=== PATIENT | female | born 1995 | race Hispanic/Latino ===

== ENCOUNTER 2021-06-03 15:55 | Outpatient (CLI) | payer BC, SELFPAY ==
--- NOTE | ~2021-06-03 | US_ITS ---
EXAMINATION: US OB /maternal detail DATE: 06/03/2021 17:15 INDICATION: survey TECHNIQUE: Multiple obstetric sonographic images performed. FINDINGS: No prior studies for comparison. There is a single living fetus in breech presentation. The placenta is anterior without placenta pre via. Amniotic fluid volume is normal. JOLEEN measures 13.6 cm. cardiac activity and movement is noted with a heart rate of 126 beats per minute. The following anatomy was identified as normal: 4 chamber heart 3 vessel cord cord insertion kidneys urinary bladder stomach spine diaphragm ventricles cisterna magna cerebellum The following biometric data were obtained: BPD: 62mm corresponds to gestational age 25 weeks 1 days. Head circumference: 234 mm corresponds to gestational age 25 weeks 3 days. Abdominal circumference: 210 mm corresponds to gestational age 25 weeks 4 days. Femur length: 46 mm corresponds to gestational age 25 weeks 2 days. Head circumference to abdominal circumference ratio: 1.12 (normal range for expected gestational age is 1.04-1.22). Estimated weight: 808 grams +/- 121 grams using Hadlock method. IMPRESSION: 1: Single living intrauterine with an estimated gestational age of 25weeks 3days by current ultrasound measurements, with an EDC of 09/13/2021 in breech presentation. 2. Normal survey. Reviewed, dictated and finalized at location A. R SUPPLY ENGINEER IMPRESSION: 1: Single living intrauterine with an estimated gestational age of 25 weeks 3days by current ultrasound measurements, with an EDC of 09/13/2021 in br eech presentation. 2. Normal survey.
== END 2021-06-03 15:56 | disposition home or self-care (01) ==
PROVIDERS: Visit Provider Obstetrics & Gynecology
DX: O41.8X93 Other specified disorders of amniotic fluid and membranes, unspecified trimester, fetus 3 (principal); O46.8X3 Other antepartum hemorrhage, third trimester; Z36.3 Encounter for antenatal screening for malformations; Z3A.25 25 weeks gestation of pregnancy
CPT/HCPCS: 76805

== ENCOUNTER 2021-06-24 15:33 | Outpatient (CLI) | payer BC, SELFPAY ==
[2021-06-24 17:39] LABS: Hematocrit 36.1 % (37.0-47.0); Hemoglobin 11.9 g/dL (12.0-15.0); Mean Platelet Volume 11.4 fl (7.4-10.4); Platelet Count Result 297 k/mm3 (150-375); Red Cell Distribution Width 13.7 % (11.5-14.5); White Blood Count 12.7 K/mm3 (4.5-10.0)
[2021-06-24 17:50] LABS: Glucose 1 Hour PP 50gm Dose 130 mg/dL
[2021-06-24 18:42] LABS: HIV 1/2 Ab P24 Ag Result Negative (Negative)
[2021-06-25 06:32] LABS: Rapid Plasma Reagin Non-Reactive (NonReactive)
== END 2021-06-24 15:34 | disposition home or self-care (01) ==
LOC: ANHLAB 15:37
PROVIDERS: Visit Provider Obstetrics & Gynecology
DX: Z34.90 Encounter for supervision of normal pregnancy, unspecified, unspecified trimester (principal)
CPT/HCPCS: 36415; 82947; 85027; 86592; 86703; G0432

== ENCOUNTER 2021-07-09 14:57 | Outpatient (CLI) | payer BC, SELFPAY | END 2021-07-09 14:58 | disposition home or self-care (01) | LOC: ANHBWCLAB 14:59 | PROVIDERS: Visit Provider Obstetrics & Gynecology | DX: Z34.92 Encounter for supervision of normal pregnancy, unspecified, second trimester (principal); Z3A.29 29 weeks gestation of pregnancy | CPT/HCPCS: 36415; 86787 ==

== ENCOUNTER 2021-07-24 10:29 | Outpatient (CLI) | payer BC, SELFPAY ==
[2021-07-24 10:50] LABS: Hematocrit 33.6 % (37.0-47.0); Hemoglobin 10.9 g/dL (12.0-15.0); Mean Corpuscular HGB Conc 32.4 g/dl (32-36); Mean Corpuscular Hemoglobin 28.2 pg (26-34); Platelet Count Result 268 k/mm3 (150-375); Red Blood Count 3.86 M/mm3 (4.2-5.4); Red Cell Distribution Width 13.5 % (11.5-14.5); White Blood Count 11.3 K/mm3 (4.5-10.0)
[2021-07-24 11:01] LABS: Alanine Aminotransferase 32 U/L (4-35); Albumin Level 3.9 g/dL (3.5-5.1); Alkaline Phosphatase 125 U/L (38-126); Anion Gap 10 mmol/L (8-16); Aspartate Amino Transferase 25 U/L (14-36); Bilirubin,Total 0.3 mg/dL (0.2-1.3); Blood Urea Nitrogen 6 mg/dL (7-17); Calcium 9.6 mg/dL (8.4-10.2); Carbon Dioxide 22 mmol/L (22-30); Chloride 105 mmol/L (98-107); Estimated Glomerular Filt Rate > 60; Glucose 101 mg/dL (65-110); Potassium 3.8 mmol/L (3.4-5.0); Sodium 137 mmol/L (137-145)
[2021-07-24 12:12] LABS: Collection Time Urine 24 HOURS
[2021-07-24 12:15] LABS: Total Volume 24 Hour Urine 2400 ml
[2021-07-24 12:20] LABS: Creatinine Urine 78.5 mg/dL; Total Protein Urine 24 Hr 456 mg/24hr (28-141); Total Protein Urine Random 19 mg/dL
[2021-07-24 13:06] LABS: Creatinine Clearance Urine 298.3 ml/min (75-125); Patient Weight 198 Lbs
== END 2021-07-24 10:30 | disposition home or self-care (01) ==
PROVIDERS: Visit Provider Obstetrics & Gynecology
DX: O13.9 Gestational [pregnancy-induced] hypertension without significant proteinuria, unspecified trimester (principal); R80.9 Proteinuria, unspecified; Z3A.00 Weeks of gestation of pregnancy not specified
CPT/HCPCS: 36415; 80053; 81050; 82575; 84156; 84550; 85027

== ENCOUNTER 2021-08-19 15:15 | Outpatient (CLI) | payer BC, SELFPAY ==
--- NOTE | ~2021-08-19 | US_ITS ---
EXAMINATION: US OB follow up DATE: 08/19/2021 16:06 INDICATION: Assess growth an weight as well as amniotic fluid index during third trimeste r . TECHNIQUE: Real-time ultrasound of the pelvis was performed. The interpreting radiologist was not pre sent for the study. COMPARISON: 06/03/2021 FINDINGS: There is a single living fetus in vertex presentation. The placenta is anterior. heart rate is 139 beats per minute (bpm). The amniotic fluid index is 11.5 cm, which is normal (5th%-95%: 7.9-24. 9 cm at 35 weeks estimated gestational age). The following biometric data were obtained: BPD: 9.2 cm -> 37 weeks 3 days Head circumference: 32.9 cm -> 37 weeks 3 days Abdominal circumference: 31.4 cm -> 35 weeks 2 days Femur length: 6.8 cm -> 35 weeks 1 days These measurements are concordant. Head circumference to abdominal circumference ratio: 1.05 (normal range 0.92-1.07). Estimated weight: 2747 g (+/-) 412 g or 6 lbs. 1 oz. (+/-) 15 oz. IMPRESSION: 1. Single living fetus in vertex presentation with heart rate of 139 bpm. 2. Normal amniotic fluid index of 11.5 cm. 3. Estimated weight is 60th percentile by Hadlock criteria when 09/21/2021 is used as the estima sallie date of delivery (AZEB). Please correlate with clinical information or earlier ultrasounds for mos t accurate AZEB. Reviewed, dictated and finalized at location A. KER AND SORTER OPERATOR IMPRESSION: 1. Single living fetus in vertex presentation with heart rate of 139 bpm. 2. Normal amniotic fluid index of 11.5 cm. 3. Estimated weight is 60th percentile by Hadlock criteria when 09/21/2021 is used as the estimated date of delivery (AZEB). Please correlate with clinica l information or earlier ultrasounds for most accurate AZEB.
== END 2021-08-19 15:16 | disposition home or self-care (01) ==
LOC: ANHIMG 15:16
PROVIDERS: Visit Provider Obstetrics & Gynecology
DX: O36.60X0 Maternal care for excessive fetal growth, unspecified trimester, not applicable or unspecified (principal); Z3A.00 Weeks of gestation of pregnancy not specified
CPT/HCPCS: 76816

== ENCOUNTER 2021-08-21 12:24 | Outpatient (CLI) | payer BC, SELFPAY ==
[2021-08-21 13:12] LABS: Hematocrit 33.6 % (37.0-47.0); Mean Corpuscular HGB Conc 32.7 g/dl (32-36); Mean Corpuscular Hemoglobin 28.1 pg (26-34); Mean Corpuscular Volume 85.9 fl (80-100); Mean Platelet Volume 11.1 fl (7.4-10.4); Platelet Count Result 264 k/mm3 (150-375); Red Blood Count 3.91 M/mm3 (4.2-5.4); White Blood Count 11.7 K/mm3 (4.5-10.0)
[2021-08-21 13:24] LABS: Alanine Aminotransferase 30 U/L (4-35); Albumin Level 3.8 g/dL (3.5-5.1); Alkaline Phosphatase 160 U/L (38-126); Anion Gap 6 mmol/L (8-16); Aspartate Amino Transferase 29 U/L (14-36); Bilirubin,Total 0.4 mg/dL (0.2-1.3); Blood Urea Nitrogen 6 mg/dL (7-17); Carbon Dioxide 24 mmol/L (22-30); Chloride 105 mmol/L (98-107); Estimated Glomerular Filt Rate > 60; Glucose 88 mg/dL (65-110); Potassium 3.6 mmol/L (3.4-5.0); Sodium 135 mmol/L (137-145); Uric Acid 4.5 mg/dL (2.5-7.5)
[2021-08-21 13:36] LABS: Collection Time Urine 24 HOURS
[2021-08-21 13:44] LABS: Creatinine Urine 102.8 mg/dL; Patient Weight 202 Lbs; Total Protein Urine 24 Hr 225 mg/24hr (28-141); Total Protein Urine Random 15 mg/dL; Total Volume 24 Hour Urine 1500 ml
[2021-08-21 13:51] LABS: Creatinine Clearance Urine 242.1 ml/min (75-125); Serum Creat 0.4
== END 2021-08-21 12:25 | disposition home or self-care (01) ==
LOC: ANHLAB 12:26
PROVIDERS: Visit Provider Obstetrics & Gynecology
DX: O13.9 Gestational [pregnancy-induced] hypertension without significant proteinuria, unspecified trimester (principal); Z3A.00 Weeks of gestation of pregnancy not specified
CPT/HCPCS: 36415; 80053; 81050; 82575; 84156; 84550; 85027

== ENCOUNTER 2021-08-31 06:02 | Inpatient (IN) | payer BC, SELFPAY ==
[2021-08-31] VITALS (131 sets, daily range): BP systolic 110–165; BP diastolic 61–105; PULSE 73–175; RESP 16; TEMP 36.1–36.9; O2SAT 98–100; BMI 37.0
[2021-08-31 06:55] LABS: Basophils Percent Auto 0.4 % (0.2-1.2); Eosinophils Absolute Auto 0.1 K/mm3 (0-0.3); Eosinophils Percent Auto 1.1 % (0-4.4); Hematocrit 33.1 % (37.0-47.0); Hemoglobin 10.7 g/dL (12.0-15.0); Immature Granulocyte Percent A 0.9 % (0-0.5); Lymphocytes Absolute Auto 2.26 K/mm3 (0.9-3.2); Lymphocytes Percent Auto 21.3 % (18.3-44.2); Mean Corpuscular HGB Conc 32.3 g/dl (32-36); Mean Corpuscular Hemoglobin 27.6 pg (26-34); Mean Corpuscular Volume 85.5 fl (80-100); Monocytes Absolute Auto 0.9 K/mm3 (0.1-0.6); Monocytes Percent Auto 8.1 % (2.6-8.5); Neutrophils Absolute Auto 7.2 K/mm3 (1.3-6.7); Neutrophils Percent Auto 68.2 % (45.5-73.1); Platelet Count Result 258 k/mm3 (150-375); Red Blood Count 3.87 M/mm3 (4.2-5.4); White Blood Count 10.6 K/mm3 (4.5-10.0)
[2021-08-31 07:04] LABS: Alanine Aminotransferase 33 U/L (4-35); Albumin Level 3.7 g/dL (3.5-5.1); Alkaline Phosphatase 187 U/L (38-126); Anion Gap 7 mmol/L (8-16); Aspartate Amino Transferase 28 U/L (14-36); Bilirubin,Total 0.1 mg/dL (0.2-1.3); Blood Urea Nitrogen 7 mg/dL (7-17); Calcium 8.7 mg/dL (8.4-10.2); Carbon Dioxide 20 mmol/L (22-30); Chloride 107 mmol/L (98-107); Estimated Glomerular Filt Rate > 60; Glucose 105 mg/dL (65-110); Potassium 3.4 mmol/L (3.4-5.0); Sodium 134 mmol/L (137-145); Uric Acid 4.7 mg/dL (2.5-7.5)
[2021-08-31] MEDS: AMPICILLIN 2 GM/NS 100 ML 2 GM/100 ML BAG IVPB (07:05)
[2021-08-31] MEDS: LACTATED RINGERS 1,000 ML 125 ML IV CONT ×2 (07:06→11:15)
[2021-08-31] MEDS: OXYTOCIN 30 UNITS/NS 500 ML 30 UNITS/500 ML BAG IV CONT (07:06)
--- NOTE | 2021-08-31 07:09 | LDADM ---
This patient, Elham Schumacher, was admitted to Labor/Delivery/Recovery 104 on 08/31/21 at 06:02. Plans for labor, pain management and were discussed with patient. Patient/family oriented to hospital policies and general routines including ID bracelet, bed and alarms, visiting hours, pain management, procedures, bathroom and other care routines, personal items, smoking policy, room service/diet and guest tray routines, infant security routines, and visiting hours. Patient/Family are encouraged to report perceived risks to care and to ask questions if they do not understand what they are told or what they should do. See OBIX for further documentation.
--- NOTE | 2021-08-31 08:07 | WPDOBADMIT ---
Obstetrics - Admit Note Admission Note: record reviewed. No pertinent additions to the history and/or any subsequent changes in the physical findings that are not consistent with the expected course of the were found. Additions to the history and/or subsequent changes in the physical findings follow. at 37+0 for induction of labor due to mild preeclampsia. No GREEN/visual changes. Cervix 3-4/30/-2/soft/posterior. AROM with small clear fluid. GBS+. PIH labs normal. Continue antibiotics and PCN. Observe BP closely.
[2021-08-31 08:49] LABS: Amphetamine Screen Urine Negative (Negative); Barbiturate Screen Urine Negative (Negative); Benzodiazepines Screen Urine Negative (Negative); Cannabinoid Screen Urine Negative (Negative); Cocaine Screen Urine Negative (Negative); Methadone Screen Urine Negative (Negative); Opiate Screen Urine Negative (Negative); Phencyclidine Screen Urine Negative (Negative)
[2021-08-31] MEDS: AMPICILLIN 1 GM/NS 50 ML 1 GM/50 ML BAG IVPB ×2 (11:15→14:47)
--- NOTE | 2021-08-31 12:49 | WPDANESEPPF ---
Anes - Initial Pre Proc Eval Procedure: labor epidural Date/Time: 08/31/21 12:49 Surgeon: Genny Garzon MD Pre Op Diagnosis: labor pain Pre Op Diagnosis: Induction of Labor Patient Data Age: 26 Gender: F Height: 1.57 m Weight: 92 kg Last Vital Signs Temp 36.4 C 08/31/21 11:45 Pulse 90 08/31/21 12:45 BP 120/75 08/31/21 12:45 Pulse Ox 100 08/31/21 12:44 Allergies Allergy/AdvReac Type Severity Reaction Status Date / Time No Known Allergies Allergy Verified 08/26/21 15:07 Home Medications Medication Instructions Recorded Confirmed Type docosahexaenoic acid 200 mg capsule 200 mg PO DAILY 05/28/21 08/26/21 History Laboratory Tests 08/31/21 08/31/21 08/31/21 06:48 06:48 06:48 WBC 10.6 K/mm3 H K/mm3 (4.5-10.0) RBC 3.87 M/mm3 L M/mm3 (4.2-5.4) Hgb 10.7 g/dL L g/dL (12.0-15.0) Hct 33.1 % L % (37.0-47.0) MCV 85.5 fl fl (80-100) MCH 27.6 pg pg (26-34) MCHC 32.3 g/dl g/dl (32-36) RDW 14.0 % % (11.5-14.5) Plt Count 258 k/mm3 k/mm3 (150-375) MPV 11.0 fl H fl (7.4-10.4) Immature Gran % (Auto) 0.9 % H % (0-0.5) Neut % (Auto) 68.2 % % (45.5-73.1) Lymph % (Auto) 21.3 % % (18.3-44.2) Lincoln % (Auto) 8.1 % % (2.6-8.5) Eos % (Auto) 1.1 % % (0-4.4) Baso % (Auto) 0.4 % % (0.2-1.2) Lymph # (Auto) 2.26 K/mm3 K/mm3 (0.9-3.2) Lincoln # (Auto) 0.9 K/mm3 H K/mm3 (0.1-0.6) Eos # (Auto) 0.1 K/mm3 K/mm3 (0-0.3) Baso # (Auto) 0.0 K/mm3 K/mm3 (0.0-0.1) Abs Immat Gran (auto) 0.10 K/mm3 H K/mm3 (0.00-0.031) Absolute Neuts (auto) 7.2 K/mm3 H K/mm3 (1.3-6.7) Absolute Nucleated RBC 0.0 K/mm3 K/mm3 (0.0-0.012) Nucleated RBC % 0.0 % % (0.0-0.2) Sodium Potassium Chloride Carbon Dioxide Anion Gap BUN Creatinine Estim Creat Clear Calc Estimated GFR Glucose Uric Acid Calcium Total Bilirubin AST ALT Alkaline Phosphatase Total Protein Albumin Urine Opiates Screen Urine Methadone Screen Ur Barbiturates Screen Ur Phencyclidine Scrn Ur Amphetamine Screen U Benzodiazepines Scrn Urine Cocaine Screen U Cannabinoids Screen RPR Pending Blood Type O Positive Antibody Screen Negative 08/31/21 08/31/21 06:48 08:14 WBC RBC Hgb Hct MCV MCH MCHC RDW Plt Count MPV Immature Gran % (Auto) Neut % (Auto) Lymph % (Auto) Lincoln % (Auto) Eos % (Auto) Baso % (Auto) Lymph # (Auto) Lincoln # (Auto) Eos # (Auto) Baso # (Auto) Abs Immat Gran (auto) Absolute Neuts (auto) Absolute Nucleated RBC Nucleated RBC % Sodium 134 mmol/L L mmol/L (137-145) Potassium 3.4 mmol/L mmol/L (3.4-5.0) Chloride 107 mmol/L mmol/L (98-107) Carbon Dioxide 20 mmol/L L mmol/L (22-30) Anion Gap 7 mmol/L L mmol/L (8-16) BUN 7 mg/dL mg/dL (7-17) Creatinine 0.30 mg/dL L mg/dL (0.7-1.0) Estim Creat Clear Calc Not Reportable Estimated GFR > 60 (59 - ) Glucose 105 mg/dL mg/dL (65-110) Uric Acid 4.7 mg/dL mg/dL (2.5-7.5) Calcium 8.7 mg/dL mg/dL (8.4-10.2) Total Bilirubin 0.1 mg/dL L mg/dL (0.2-1.3) AST 28 U/L U/L (14-36) ALT 33 U/L U/L (4-35) Alkaline Phosphatase 187 U/L H U/L (38-126) Total
--- NOTE | 2021-08-31 17:28 | PM.OBPRVD ---
OB - Delivery Note Procedure Delivery date: 08/31/21 Procedure: Events: Preeclampsia w/o severe features Induction method: Per Pitocin Protocol Delivery augmentation: Rupture of Membranes Delivery monitor: External FHT and Internal Uterine Route of delivery: Laceration Description: Periurethral (left) Delivery repair: vicryl (one stitch 3-0) Specimen: Yes Quantitative Blood Loss (ml): 262 Anesthesia type: Epidural Disposition: Floor Baby Date of : 08/31/21 Time of : 17:14 Weeks of gestation at delivery: 37 Infant gender: Male Weight (pounds): 6 Weight (ounces): 7 presentation: vertex position: Left Occiput Anterior Placenta delivery description: Spontaneous and Abnormal Configuration (bilobed with marginal cord insertion) Cord Vessel Description: 3 Vessels and Clamped/Cut score one minute: 8 score five minutes: 9
[2021-08-31] MEDS: OXYTOCIN 30 UNITS/NS 500 ML 30 UNITS/500 ML BAG 125 UNITS IV CONT (17:33)
[2021-08-31 17:59] LABS: Rapid Plasma Reagin Non-Reactive (NonReactive)
[2021-08-31] MEDS: IBUPROFEN 600 MG TABLET PO (20:26)
[2021-08-31] MEDS: WITCH HAZEL 40 PADS 1 PAD TOPICAL (20:26)
[2021-08-31] MEDS: LANOLIN (LANSINOH) 7.5 GM CREAM 1 APPLIC TOPICAL (20:26)
[2021-08-31] MEDS: BENZOCAINE 20% AER SPR (*SP) 56 GM CAN 1 SPRAY TOPICAL (20:26)
[2021-08-31] MEDS: ACETAMINOPHEN 325 MG TABLET 650 MG PO (21:47)
--- NOTE | 2021-08-31 22:08 | OBPPTRN ---
08/31/2021 at 2117. Patient transferred to post room via wheelchair. Support person present. Oriented to unit, room, information board, rooming in, admission packet and security measures. Patient's bed alarm placed on because patient not ambulating sufficiently at this time. Patient knows to call out before attempting ambulation. Patient verbalizes understanding.
[2021-09-01] VITALS (7 sets, daily range): BP systolic 128–142; BP diastolic 85–92; PULSE 72–90; RESP 14–18; TEMP 36.4–37.1; O2SAT 98–100
[2021-09-01] MEDS: miSOPROStol 200 MCG TABLET 1000 MCG RECTAL (01:59)
[2021-09-01 05:23] LABS: Hematocrit 29.3 % (37.0-47.0); Hemoglobin 9.6 g/dL (12.0-15.0)
--- NOTE | 2021-09-01 07:55 | PM.OBPNVD ---
OB - PN: Subj Subjective Date/time seen: 09/01/21 07:55 Patient comments: no complaints, pain well controlled and other (Lochia similar to menses since she passed one large clot in early am) [place] baby status: doing well Narrative: No CP, SOB, dizziness, GREEN, visual changes OB - PN: Obj Data Labs CBC & Chem 7: 09/01/21 04:59 08/31/21 06:48 Labs: Laboratory Results - last 24 hr 08/31/21 08/31/21 09/01/21 06:48 08:14 04:59 Hgb 9.6 L Hct 29.3 L Urine Opiates Screen Negative Urine Methadone Screen Negative Ur Barbiturates Screen Negative Ur Phencyclidine Scrn Negative Ur Amphetamine Screen Negative U Benzodiazepines Scrn Negative Urine Cocaine Screen Negative U Cannabinoids Screen Negative RPR Non-reactive OB - PN A/P Assessment and Plan (1) Preeclampsia: Code(s): O14.90 - Unspecified pre-eclampsia, unspecified trimester Status: Acute Assessment and Plan: BP now normal to mildly elevated, asymptomatic. Labs normal yesterday. Observe closely. Likely discharge tomorrow Plan day: 1 (s/p vaginal delivery, doing well) Plan: routine care Comments: Mild anemia (anemic prior to delivery with small appropriate drop in hemoglobin), asymptomatic. Bleeding similar to menses now. Observe bleeding, symptoms, and vitals closely Time Spent With Patient Time: Total time spent is greater than 50% in coordination of care (as documented) at patient's floor/unit and/or counseling patient: Time with patient: less than 15 minutes Exam Const: General: no acute distress GI: Inspection: other (Fundus firm and nontender at umbilicus) GI Palp: Yes Soft to palpation and No Tenderness to palpation present (GI) Extrem: General: no edema
[2021-09-01] MEDS: POLYSACCHARIDE IRON COMPLEX 150 MG CAPSULE PO ×2 (08:55→17:03)
[2021-09-01] MEDS: DOCUSATE SODIUM 100 MG CAPSULE PO ×2 (08:55→17:03)
[2021-09-01] MEDS: IBUPROFEN 600 MG TABLET PO ×3 (08:56→23:55)
[2021-09-01] MEDS: MULTIVIT/MIN/PREN/FOL AC/IRON TABLET 1 TAB PO (08:56)
[2021-09-01] MEDS: ACETAMINOPHEN 325 MG TABLET 650 MG PO ×2 (08:56→20:35)
--- NOTE | 2021-09-01 10:15 | PCCCNOTE ---
Received referral for edibles during . Met with pt. and her significant other/father of baby at bedside. Pt. confirms using marijuana edibles early on in due to anxiety and discomfort. She obtained them socially. She denies any substance use at this time time. Her UDS is all negative. Pt. lives with significant other/father of baby and their 2 other children, ages 7 and 2. Pt.'s mother is caring for other children during hospitalization. They state both of their mothers being supportive and willing to assist as needed. They deny any history with DCFS. They are current with [facility]. They state having all needed items to care for baby at return home and are working with 's office for breast pump. RN notified and will also discuss with art consultant. Provided pt. with additional resources and she accepted same. Encouraged she contact any/all of interest. Discussed all above with RN and at this time, no further social service concerns indicated.
--- NOTE | 2021-09-01 12:22 | PC.NURSE ---
0930 - Introductions made and consulted with the Mother on her experience with feeding baby so far. Mother is eating breakfast and states has been going great without discomfort. RN confirmed that had not breastfed since 219. Reviewed frequency of , milk production and unwrapping to assess for feeding cues and skin to skin. Mother states was taken to the nursery early this morning, was circumcised and has recently returned to the room. BS checked - appropriate result of 75. Mother works well with her infant and is eager to learn and place skin to skin to prepare to breastfeed. Reviewed good handwashing when working with , breast, nipples and how to protect the nipples with a deep latch. Encouraged understanding the benefits of skin to skin, responding to feeding cues, frequencies of feeding 8-12 times in 24 hours (approximately 2-3 hours), duration of feedings, milk production, intake/output feeding sheet and signs of adequate intake. Discussed stimulating infant with skin to skin, hand expressing colostrum, touch and talking to to encourage eating at the breast. Reviewed positioning and alignment, supporting breast, off-centered (asymmetrical latch) and leading with the chin with big open wide gape. latched optimally to the left breast in cross cradle position. Education given to mother of how to visualize suck/swallow ratios and drinking at the breast. was able to maintain latch without discomfort to mother. Nipple care reviewed with optimal latching, comfort and healing with warm, wet washcloth to rinse breast and leave to air-dry. Resources used to facilitate learning were used from the visual handout/mom and baby guide. Mother voiced understanding responding to feeding cues, may need to stimulating approximately 2-3 hours from the start of the last feeding, calling for assistance if the does not latch or there discomfort . Reported to primary RN.
[2021-09-02 04:45] VITALS: BP 136/89; PULSE 78
[2021-09-02] MEDS: ACETAMINOPHEN 325 MG TABLET 650 MG PO (04:47)
--- NOTE | 2021-09-02 06:53 | P.PNOB_ITS ---
OB - PN: Subj Subjective Date/time seen: 09/02/21 06:53 Patient comments: no complaints, pain well controlled and other (Lochia similar to menses) [place] baby status: doing well OB - PN: Obj Data Labs CBC & Chem 7: 09/01/21 04:59 08/31/21 06:48 OB - PN A/P Plan day: 2 (s/p vaginal delivery, doing well) Plan: routine care, discharge home and other (Follow up in office in 4 weeks) Time Spent With Patient Time: Total time spent is greater than 50% in coordination of care (as documented) at patient's floor/unit and/or counseling patient: Exam Const: General: no acute distress GI: Inspection: other (Fundus firm and nontender below umbilicus) GI Palp: Yes Soft to palpation and No Tenderness to palpation present (GI) Extrem: General: no edema
--- NOTE | 2021-09-02 06:54 | P.DS_ITS ---
DS: Admitting Diagnosis Discharge Date 09/02/2021 Admitting Diagnosis Mild preeclampsia, induction of labor DS: Discharge Diagnosis Discharge Diagnosis (1) (spontaneous vaginal delivery): Code(s): O80 - Encounter for full-term uncomplicated delivery Status: Acute (2) Preeclampsia: Code(s): O14.90 - Unspecified pre-eclampsia, unspecified trimester Status: Acute OB - DS: Summary OB Procedures : PIH Mgmt OB Procedures Intrapartum: Spontaneous Vag Delivery OB Procedures: : None Peripartum Data Delivery Method: Natural Vaginal Laceration Description: Periurethral complications: none Status at Discharge Functional status at discharge: independent ambulation Overall status at discharge: patient is progressing back to baseline Time Spent with Patient Time attestation: Total time spent providing and/or coordinating discharge services: Time spent: Less than 30 minutes DS: Data Data Completed and Pending Pending studies at discharge: Pending at discharge 08/31/21 17:20 Surgical [PTH] Routine Discharge Plan Discharge Attending physician on discharge: Genny Garzon Discharging Clinician: Genny Garzon Patient Disposition: Home, Self-Care Activity: may shower and pelvic rest Diet: as tolerated Patient Instructions: Antibiotic Form Stand Alone Forms: General Discharge Information Follow-up/Referrals: Genny Garzon MD [Physician] - 1 Week Discharge Medications: New ibuprofen 600 mg Tablet 600 mg PO Q6H PRN (Reason: Cramping) Qty: 60 RF: 0 Continued DHA 200 mg capsule 200 mg PO DAILY RF: 0 Date of admission: 08/31/21 06:02 Primary Care Provider: PHYSICIAN,8TH GRADE TEACHER Admitting Provider: Genny Garzon Attending physician on admission: Genny Garzon Condition: Stable
[2021-09-02 07:15] VITALS: BP 136/97; PULSE 80; RESP 18; TEMP 36.6; O2SAT 100
[2021-09-02] MEDS: IBUPROFEN 600 MG TABLET PO (08:38)
[2021-09-02] MEDS: POLYSACCHARIDE IRON COMPLEX 150 MG CAPSULE PO (08:38)
[2021-09-02] MEDS: DOCUSATE SODIUM 100 MG CAPSULE PO (08:39)
[2021-09-02] MEDS: MULTIVIT/MIN/PREN/FOL AC/IRON TABLET 1 TAB PO (08:39)
--- NOTE | 2021-09-02 09:00 | PC.NURSE ---
Patient viewed the discharge video Mother & Baby Care, The First Two Weeks . Patient was given the opportunity and encouraged to ask questions. Patient verbalized understanding of information shared and has been given the mother/baby guide for home reference.
[2021-09-03 09:38] VITALS: BP 148/88; PULSE 87; RESP 20; TEMP 36.7; O2SAT 100
== END 2021-09-02 10:48 | disposition home or self-care (01) | DRG 560 ==
LOC: ANHLDR 06:10 → ANHOB2 22:02
PROVIDERS: Admitting Provider Obstetrics & Gynecology; Visit Provider Obstetrics & Gynecology
DX: O14.04 Mild to moderate pre-eclampsia, complicating childbirth (principal); Z37.0 Single live birth; Z3A.37 37 weeks gestation of pregnancy; O99.824 Streptococcus B carrier state complicating childbirth; O71.82 Other specified trauma to perineum and vulva; O43.893 Other placental disorders, third trimester; O43.123 Velamentous insertion of umbilical cord, third trimester
CPT/HCPCS: 36415; 80053; 80307; 84550; 85014; 85018; 85025; 86592; 86850; 86900; 86901; 88307; A9270; J0290; J2590; J2795; J7120

== ENCOUNTER 2022-04-16 13:24 | Emergency (ER) | payer BC, SELFPAY ==
[2022-04-16 13:38] VITALS: BP 156/104; PULSE 89; RESP 16; TEMP 37.3; O2SAT 99
--- NOTE | 2022-04-16 14:08 | ED.URI ---
HPI - URI/Sore Throat General Chief Complaint: Upper Respiratory Infection Stated Complaint: sore throat, right ear pain, headache Time Seen by Provider: 04/16/22 13:58 Source: patient Mode of arrival: ambulatory Limitations: no limitations History of Present Illness HPI Narrative: Patient presents today with a 3 day history of sore throat, headache, dry cough, right ear pain. She currently rates her pain 7/10 and has been taking Tylenol and using cough drops with mild relief. Related Data Allergies Allergy/AdvReac Type Severity Reaction Status Date / Time No Known Allergies Allergy Verified 04/16/22 13:35 Review of Systems Review of Systems: CONSTITUTIONAL: Denies body aches, fever, chills, or sweats. EYES: Denies visual changes, redness, or discharge. ENT: Denies rhinorrhea, congestion. + Sore throat, right ear pain CARDIOVASCULAR: Denies chest pain, palpitations, or edema. RESPIRATORY: Denies dyspnea.+ cough GASTROINTESTINAL: Denies abdominal pain, nausea, vomiting, or diarrhea. GENITOURINARY: Denies dysuria or hematuria. SKIN: Denies rash, itching, or wounds. MUSCULOSKELETAL: Denies back pain, joint pain, or myalgia. NEUROLOGIC: Denies numbness, tingling, or weakness.+ headache PSYCH: Denies depression or anxiety. [facility] Past Medical History Medical History Abnormal Pap smear of cervix 10/09/13, LGSIL 04/19/16, ASCUS HPV neg Anxiety Elective x1 Vaginal delivery x2 Surgical History Surgical History H/O abdominal surgery 2016, removal of gallstones laser of kidney stone History of cholecystectomy 2016 History of colposcopy 06/27/14 Family History Family History Father Diabetes mellitus Hypertension Mother Diabetes mellitus Hypertension Cerebrovascular accident Grandparent Heart disease Social History Social History Smoking status: Never smoker Alcohol intake: former Substance use: never Spiritual care concerns: No Agree to blood products: Yes Comments At time of signature, I have reviewed and agree with nursing past medical, surgical, social and family history unless otherwise noted. Please see nursing chart for further information. There is no relevant family history pertinent to the presenting complaint Exam Narrative: GENERAL: Well-appearing, well-nourished, and in no acute distress. HEAD: Normocephalic, atraumatic. EYES: EOMI. No redness or drainage. Conjunctivae normal. ENT: Mucous membranes pink and moist. Nares clear. No rhinorrhea. bilateral middle ear effusions without evidence of bacterial infection. Throat normal. Uvula midline. NECK: Normal AROM. Supple. No lymphadenopathy. CHEST: No respiratory distress. Clear to auscultation. HEART: Regular rate and rhythm. No murmur appreciated. Normal peripheral pulses. EXTREMITIES: Normal range of motion. No edema. SKIN: Warm, dry, no rash. Capillary refill normal. Normal skin turgor. NEURO: No focal deficits. Alert and oriented x3. Gait steady. PSYCH: Normal affect. No signs of depression or anxiety. Course Course Level of Care: Express Care Visit Vital Signs Vital signs: Vital Signs Temperature 99.1 F 04/16/22 13:38 Pulse Rate 89 04/16/22 13:38 Respiratory Rate 16 04/16/22 13:38 Blood Pressure 156/104 H 04/16/22 13:38 Pulse Oximetry 99 04/16/22 13:38 Oxygen Delivery Room Air 04/16/22 13:38 Temperature 99.1 F 04/16/22 13:38 Pulse Rate 89 04/16/22 13:38 Respiratory Rate 16 04/16/22 13:38 Blood Pressure 156/104 H 04/16/22 13:38 Pulse Oximetry 99 04/16/22 13:38 Oxygen Delivery Room Air 04/16/22 13:38 Reviewed. Pt has been instructed to follow up with her PCP regarding her elevated blood pressure today.
== END 2022-04-16 14:15 | disposition home or self-care (01) ==
PROVIDERS: Emergency Provider Nurse Practitioner
DX: J06.9 Acute upper respiratory infection, unspecified (principal)
CPT/HCPCS: 87081; 87880; 99213; G0463

== ENCOUNTER 2022-10-19 19:07 | Emergency (ER) | payer BC, SELFPAY ==
--- NOTE | ~2022-10-19 | CT_ITS ---
EXAMINATION: CT abdomen pelvis wo con DATE: 10/19/2022 21:29 INDICATION: right flank pain TECHNIQUE: Computed tomography (CT) of the abdomen and pelvis was performed without intravenous contr ast. Automated exposure control and iterative reconstruction technique were employed. The dose-length product was 921.60 mGy-cm. COMPARISON: None. FINDINGS: Lower thorax: Unremarkable Liver: Enlarged. Diffusely fatty infiltrated. Biliary/Gallbladder: Gallbladder is absent. No bile duct dilation. Pancreas: No mass or duct dilation. Spleen: Enlarged. Adrenals:No mass. Kidneys: Punctate bilateral renal calcifications. No mass, obstructing stone, or hydronephrosis. GI tract: No small or large bowel dilation. Mild dilation of the distal appendix, with air filling of the distal appendix, no surrounding inflammatory change hyperemia or wall thickening, likely normal for this patient. Mild diverticulosis without diverticulitis. Mesentery/Peritoneum: No ascites, mass, or free air. Retroperitoneum: No mass. Pelvis: Mild wall thickening of the partially distended urinary bladder. Remaining pelvic organs are normal. Soft Tissues: Soft tissues and body wall unremarkable. Bones: No acute osseous finding. IMPRESSION: Hepatosplenomegaly. Hepatic steatosis. Bladder wall thickening may be secondary to inadequate distent ion or cystitis. No evidence of obstructive uropathy. Reviewed, dictated and finalized at location K. IMPRESSION: Hepatosplenomegaly. Hepatic steatosis. Bladder wall thickening may be secondary to inadequate distention or cystitis. No evidence of obstructive uropathy.
[2022-10-19 19:27] VITALS: BP 136/93; PULSE 131; RESP 20; TEMP 36.5; O2SAT 97
[2022-10-19 20:06] LABS: Basophils Percent Auto 0.2 % (0.2-1.2); Hematocrit 42.4 % (37.0-47.0); Hemoglobin 13.8 g/dL (12.0-15.0); Immature Granulocyte Absolute 0.04 K/mm3 (0.00-0.031); Immature Granulocyte Percent A 0.4 % (0-0.5); Lymphocytes Absolute Auto 0.76 K/mm3 (0.9-3.2); Lymphocytes Percent Auto 7.5 % (18.3-44.2); Mean Corpuscular HGB Conc 32.5 g/dl (32-36); Mean Corpuscular Hemoglobin 26.9 pg (26-34); Mean Corpuscular Volume 82.7 fl (80-100); Mean Platelet Volume 10.8 fl (7.4-10.4); Monocytes Absolute Auto 0.4 K/mm3 (0.1-0.6); Neutrophils Absolute Auto 8.9 K/mm3 (1.3-6.7); Neutrophils Percent Auto 87.9 % (45.5-73.1); Platelet Count Result 260 k/mm3 (150-375); Red Blood Count 5.13 M/mm3 (4.2-5.4); Red Cell Distribution Width 14.3 % (11.5-14.5); White Blood Count 10.2 K/mm3 (4.5-10.0)
[2022-10-19 20:13] LABS: Bacteria Urine 1+ /hpf; Squamous Epithelial Cell Urine Few /hpf (Few)
[2022-10-19 20:16] LABS: Alanine Aminotransferase 147 U/L (6-35); Albumin Level 4.8 g/dL (3.5-5.1); Alkaline Phosphatase 87 U/L (38-126); Anion Gap 8 mmol/L (8-16); Aspartate Amino Transferase 67 U/L (14-36); Bilirubin,Total 0.7 mg/dL (0.2-1.3); Blood Urea Nitrogen 9 mg/dL (7-17); Calcium 9.1 mg/dL (8.4-10.2); Carbon Dioxide 25 mmol/L (22-30); Chloride 104 mmol/L (98-107); Estimated CRCL calculation 148 ml/min; Estimated Glomerular Filt Rate > 60; Glucose 111 mg/dL (65-110); Lipase 39 U/L (23-300); Potassium 3.3 mmol/L (3.4-5.0); Sodium 137 mmol/L (137-145)
[2022-10-19 20:23] LABS: Appearance Urine Cloudy (Clear); Bilirubin Urine Negative (Negative); Blood Urine 1+ (Negative); Color Urine Dark Yellow (Yellow); Glucose Urine UA Negative (Negative); Ketones Urine Trace mg/dL (Negative); Leukocyte Esterase Ur Trace LEU/UL (Negative); Nitrate Urine Negative (Negative); Protein Urine Trace mg/dL (Negative); Specific Grav Ur 1.028 (1.001-1.035)
[2022-10-19 20:30] LABS: Add Urine Microscopic? YES
[2022-10-19 20:38] VITALS: BP 126/94; PULSE 124
[2022-10-19 20:39] VITALS: BP 122/84; PULSE 126
[2022-10-19 20:40] VITALS: BP 117/85; PULSE 124
--- NOTE | 2022-10-19 21:07 | ED.NAVMDI ---
HPI - Nausea/Vomiting/Diarrhea General Chief complaint: Nausea/Vomiting/Diarrhea Stated complaint: N/V/D Time Seen by Provider: 10/19/22 20:52 Source: patient and RN notes reviewed Mode of arrival: ambulatory Limitations: no limitations History of Present Illness HPI Narrative: This is a 27 year old female who presents for evaluation of nausea, vomiting and diarrhea. She woke up this morning with nausea, vomiting and diarrhea. She had 3 episode of diarrhea and her last episode was at noon. She also reports multiple episodes of emesis and her last episode was at 3 pm. She has been able to drink water since that episode. Her nausea has improved but she is having body aches , bilateral flank pain, headache and right ear ache. Her young son is having diarrhea as well. She denies chest pain, abdominal pain, dizziness. Related Data Allergies Allergy/AdvReac Type Severity Reaction Status Date / Time No Known Allergies Allergy Verified 10/19/22 20:41 Review of Systems Constitutional: Constitutional: Reports fatigue and Denies weakness Cardiovascular: Cardiovascular: Denies syncope, Denies rapid heart rate, Denies irregular heart rhythm, Denies leg edema and Denies dyspnea Respiratory: Respiratory: Denies chest congestion, Denies hemoptysis, Denies excessive phlegm production and Denies dyspnea Gastrointestinal: Gastrointestinal: Denies abdominal pain, Denies hematochezia, Reports diarrhea, Reports nausea and Denies vomiting Genitourinary: Genitourinary: Denies hematuria, Denies dysuria and Reports flank pain Musculoskeletal: Musculoskeletal: Reports myalgias, Denies joint swelling, Denies loss of height and Denies muscle weakness Neurologic: Denies syncope, Denies focal weakness and Denies weakness PMFSH Past Medical History Medical History Abnormal Pap smear of cervix 10/09/13, LGSIL 04/19/16, ASCUS HPV neg Anxiety Elective x1 Vaginal delivery x2 Surgical History Surgical History H/O abdominal surgery 2016, removal of gallstones laser of kidney stone History of cholecystectomy 2016 History of colposcopy 06/27/14 Family History Family History Father Diabetes mellitus Hypertension Mother Diabetes mellitus Hypertension Cerebrovascular accident Grandparent Heart disease Social History Social History Smoking status: Never smoker Alcohol intake: former Substance use: never Spiritual care concerns: No Agree to blood products: Yes Exam Const: General: alert Nutritional Appearance: obese Orientation/consciousness: patient oriented x3 HENMT: Head: normal to inspection Ears: external ears normal and TM's normal bilaterally Face and sinus: normal facial exam Mouth: Yes Normal oral and palatal mucosa present, Yes lip normal and Yes moist mucous membranes Throat: posterior oropharynx normal and uvula midline Eyes: Conjunctivae: conjunctivae normal Cornea: corneas normal Pupils: Equal, round and reactive pupils present EOM: EOMs intact bilaterally Neck: Neck: normal visual inspection Chest: Chest palpation & inspection: normal inspection of the chest Resp: Effort & Inspection: normal respiratory effort Auscultation: clear to auscultation bilaterally Cardio: Rate: tachycardic Rhythm: regular rhythm Heart sounds: no murmurs GI: GI Palp: Yes Soft to palpation, No Tenderness to palpation present (GI), No Guarding due to palpation present (GI) and No Rigid due to palpation Auscultation: normal bowel sounds Skin: General skin exam: normal color Rashes: no rashes Wounds: no wounds Neuro: General: patient oriented x3, moves all extremities and CN's II-XI intact bilaterally Extrem: General: normal to inspection Psych: Mental Status: mental statu
[2022-10-19] MEDS: ONDANSETRON INJ 4 MG/2 ML VIAL IV PUSH (21:17)
[2022-10-19] MEDS: LACTATED RINGERS 1,000 ML 999 ML IV CONT ×2 (21:17→21:18)
[2022-10-20 09:21] LABS: Influenza A QL RT-PCR Negative (Negative); Influenza B QL RT-PCR Negative (Negative); RSV RNA, RT-PCR Negative (Negative); SARS-CoV-2 RNA PCR Negative (Negative)
--- NOTE | 2022-11-08 18:57 | PC.NURSE ---
LATE ENTRY This note is being entered to document information to the patient's record. The following information was omitted on [11/08/22], by [RIAZ Salamanca]. stop time for LR 10/19/22 at 2318 for each liter
== END 2022-10-20 03:00 | disposition left against medical advice (07) ==
LOC: ANHED 21:11
PROVIDERS: Family Medicine; Emergency Provider General Practice
DX: K52.9 Noninfective gastroenteritis and colitis, unspecified (principal); E86.0 Dehydration; Z20.822 Contact with and (suspected) exposure to COVID-19; R16.2 Hepatomegaly with splenomegaly, not elsewhere classified; K76.0 Fatty (change of) liver, not elsewhere classified; R93.41 Abnormal radiologic findings on diagnostic imaging of renal pelvis, ureter, or bladder
CPT/HCPCS: 36415; 74176; 80053; 81001; 81025; 83690; 85025; 87086; 87637; 96361; 96374; 99284; J0780; J1885; J2405; J7120

== ENCOUNTER 2023-03-01 10:44 | Emergency (ER) | payer OTHER, BC, SELFPAY ==
--- NOTE | ~2023-03-01 | XR_ITS ---
EXAMINATION: XR hip BI 2V w AP pelvis DATE: 03/01/2023 15:34 INDICATION: Pelvic pain TECHNIQUE: AP view the pelvis and two views of each hip were obtained. COMPARISON: None. FINDINGS: Bone alignment is normal. There is no fracture. The soft tissues are unremarkable. IMPRESSION: 1. No acute osseous abnormality. Reviewed, dictated and finalized at location L.
--- NOTE | ~2023-03-01 | CT_ITS ---
EXAMINATION: CT brain wo con INDICATION: Headache COMPARISON: None TECHNIQUE: Standard unenhanced head CT. The dose-length product (DLP) was 605.33 mGy-cm. The mA was a djusted according to patient size. Iterative reconstruction technique was employed. FINDINGS: No intracranial hemorrhage, acute infarction, or abnormal mass lesion. The ventricles are n ormal. No abnormal mass effect or midline shift. The arreguin-white matter differentiation is normal. The basal cisterns are patent. The orbits are normal. The paranasal sinuses, mastoids and calvarium are normal. IMPRESSION: 1. No acute intracranial abnormality. Reviewed, dictated and finalized at location L.
--- NOTE | ~2023-03-01 | XR_ITS ---
EXAMINATION: XR foot LT min 3V DATE: 03/01/2023 15:34 INDICATION: Left foot pain TECHNIQUE: Dorsoplantar, lateral, and 2 oblique views of the left foot were obtained. COMPARISON: None. FINDINGS: Bone alignment is normal. There is no fracture. There is lateral soft tissue swelling. The joint spaces are unremarkable. IMPRESSION: 1. No acute osseous abnormality. Reviewed, dictated and finalized at location L.
[2023-03-01 11:03] VITALS: BP 152/110; PULSE 89; RESP 16; TEMP 36.8; O2SAT 100
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
[2023-03-01] MEDS: KETOROLAC 30 MG/ML VIAL (*BKC) IM (15:42)
[2023-03-01] MEDS: HYDROcodone/acetaminophen (*CRX) 5-325 MG TABLET 1 TAB PO (15:42)
[2023-03-01] MEDS: CYCLOBENZAPRINE HCL 10 MG TABLET PO (15:42)
== END 2023-03-01 17:04 | disposition home or self-care (01) ==
PROVIDERS: Emergency Provider Nurse Practitioner Family
DX: M79.672 Pain in left foot (principal); V43.52XA Car driver injured in collision with other type car in traffic accident, initial encounter; Y92.410 Unspecified street and highway as the place of occurrence of the external cause
CPT/HCPCS: 70450; 73521; 73630; 96372; 99284; A9270; J1885

== ENCOUNTER 2025-03-06 17:20 | Outpatient (CLI) | payer OTHER, SELFPAY ==
--- OUTSIDE RECORDS SUMMARY | 2025-03-06 17:33 | XMS_ITS | Clinical Summary ---
Author Organization [facility] Address [address] [place] [address] Care Team Providers Care Assistant Grocery Store Manager Name Role Phone Yeimi Coelho PA-C Primary Care Provider [phone] Ronald Gaspar MD Unavailable [phone] Source Comments [facility],non-owned Affiliates and Associated Physician Practices is amultiple site organization consisting of ambulatory clinics and hospital sitesin [place], [place], [place] and [place]. This disclosure is being madepursuant to the Care Everywhere program and may not contain all information available regarding this patient. Last updated 18.[facility] Allergies No known active allergies Medications * Be aware that medications may not be up to date on this document. Alwaysverify current medications with the patient. ibuprofen (ADVIL) 200 MG capsule Take 200 mg by mouth 4 times daily as needed. 2tabs taken as needed Active naproxen sodium (ANAPROX) 275 MG tabletIndication s:Chronic daily headache Take 1 Tab by mouth 2 times daily. 60 Tab 1 07/28/2012 Active Active Problems Problem Noted Date Diagnosed Date Chest pain 11/06/2010 Overview (11/06/2010): Pt has CP for 2-3 months, 2-3x per week, stabbing in quality, last 1-2 minutes. Occurs at rest and with exertion, associated with diaphoresis, but is more severe with exertion. Has limited exercise tolerance recently. No associated with tachycardia, dyspnea, blurry vision, or syncope. 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 ECG showed hypertrophy. Echo showed mild tricuspid regurg w/o hypertrophy. PE showed normal cardiac exam, strong pulses, but patient had tenderness to palpation on upper right, upper middle, upper left sternal border. Pain most likely 2/2 musculoskeletal injury. Discussed taking motrin 400mg PO TID for 2 weeks with meals. Also told mother and pt that if pain is still present after 1 week can increase ibuprofen dose to 600mg PO TID. Resolved Problems Problem Noted Date Diagnosed Date Resolved Date Chest pain 11/06/2010 11/06/2010 Overview (11/06/2010): CP for 3 months 2-3x/wk associated w/ and w/o exertion, + diaphoresis, stabbing in quality, last 2-3 minutes. No syncope, no tachycardia, no SOB during events. 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 Hypertrophy on ECG. Normal echo with mild tricuspid regurg otherwise no hypertrophy. Patient has tenderness to palpation on anterior upper right, left, and middle sternal border. Most likely 2/2 muscuoskeletal injury. Discussed motrin 400mg TID for 2 wks. If still no relief then can increase motrin to 600mg after first week. Family History Medical History Relation Name Comments Thyroid Disease Maternal Aunt Other Maternal Grandfather CABG Diabetes Maternal Grandmother Hypertension Maternal Grandmother Diabetes Paternal Grandmother Relation Name Status Comments Maternal Aunt Maternal Grandfather Maternal Grandmother Paternal Grandmother Social History Tobacco Use Types Packs/Day Years Used Date Smoking Tobacco: Never Smokeless Tobacco: Never Alcohol Use Standard Drinks/Week Comments No 0 (1 standard drink = 0.6 oz pur e alcohol) Comments Unknown Sex and Gender Information Value Date Recorded Sex Assigned at Not on file 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 Gender Identity Not on file Sexual Orientation Not on file Last Filed Vital Signs Vital Sign Reading Time Taken Comments Blood Pressure 125/78 08/23/2017 8:35 PM CDT Pulse 90 08/23/2017 8:35 PM CDT Temperature 37 C (98.6 F) 08/23/2017 4:14 PM CDT Respiratory Rate 18 08/23/2017 8:35 PM CDT Oxygen Saturation 99% 08/23/2017 8:35 PM CDT Inhaled Oxygen Concentration - - Weight 78.5 kg (173 lb) 08/23/2017 4:14 PM CDT Height 154.9 cm (5' 1) 08/23/2017 4:14 PM CDT Body Mass Index 32.69 08/23/2017 4:14 PM CDT Plan of Treatment Health Maintenance Due Date Last Done Comments HIV SCREENING 01/30/2011 HEPATITIS C SCREENING 01/26/2014 DTAP/TDAP/TD VACCINES (1 - Tdap) 01/30/2015 HEPATITIS B VACCINE (1 of 3 - 19+ 3-dose series) 01/30/2015 HPV VACCINE (1 - 3-dose SCDM series) 01/30/2023 DEPRESSION SCREENING 06/13/2024 COVID-19 VACCINE (1 - 2023-2 5 season) 2025 INFLUENZA VACCINE (#1) 2025 ZOSTER VACCINE (1 of 2) 01/30/2046 HIB VACCINE Aged Out No longer eligi ble based on patient's age to complete this topic MENINGOCOCCAL (Group B) VACC INE SHARED DECISION-MAKING Aged Out No longer eligibl e based on patient's age to complete this topic MENINGOCOCCAL GROUPS A/C/Y/W VACCINE Aged Out No longer eligible b ased on patient's age to complete this topic PNEUMOCOCCAL VACCINE Aged Out No long er eligible based on patient's age to complete this topic Insurance [employer] [facility] * Guarantor: X,Y Account Type Relation to Patient Date of Phone Billing Address Personal/Family Care Teams Assistant Grocery Store Manager Relationship Specialty Start Date End Date Yeimi Coelho PA-C PCP - General Physician Weight Yardage Checker 08/23/17 Ronald Gaspar MD [id number] [address] 08/23/17
[2025-03-06 18:00] LABS: Hematocrit 32.8 % (37.0-47.0); Hemoglobin 10.3 g/dL (12.0-15.0); Immature Granulocyte Percent A 0.7 % (0-0.5); Lymphocytes Absolute Auto 2.15 K/mm3 (0.9-3.2); Mean Corpuscular HGB Conc 31.4 g/dl (32-36); Mean Corpuscular Hemoglobin 24.3 pg (26-34); Mean Corpuscular Volume 77.5 fl (80-100); Nucleated Red Blood Cells Absolute Auto 0.000 K/mm3 (0.0-0.012); Nucleated Red Blood Cells Perc 0.0 % (0.0-0.2); Platelet Count Result 277 k/mm3 (150-375); Red Blood Count 4.23 M/mm3 (4.2-5.4); White Blood Count 10.7 K/mm3 (4.5-10.0)
[2025-03-06 18:01] VITALS: BP 152/86; PULSE 107
[2025-03-06 18:05] LABS: Add Urine Microscopic? YES; Appearance Urine Clear (Clear); Glucose Urine UA Negative (Negative); Leukocyte Esterase Ur 1+ LEU/UL (Negative); Nitrate Urine Negative (Negative); Non Pathogenic Casts 0-2; Specific Grav Ur 1.011 (1.001-1.035)
[2025-03-06 18:10] LABS: Total Protein Urine Random 11 mg/dL; Ur Ttl Prot Creatinine Ratio 0.20 mg/mg (0-0.20)
[2025-03-06 18:11] LABS: Alanine Aminotransferase 50 U/L (6-35); Albumin Level 3.5 g/dL (3.5-5.1); Alkaline Phosphatase 137 U/L (38-126); Anion Gap 9 mmol/L (4-12); Aspartate Amino Transferase 44 U/L (14-36); Bilirubin,Total 0.3 mg/dL (0.2-1.3); Blood Urea Nitrogen 12 mg/dL (7-17); Calcium 9.7 mg/dL (8.4-10.2); Carbon Dioxide 21 mmol/L (22-30); Chloride 104 mmol/L (98-107); Estimated Glomerular Filt Rate > 60; Glucose 111 mg/dL (65-110); Potassium 3.5 mmol/L (3.4-5.0); Sodium 134 mmol/L (137-145); Total Protein 7.0 g/dL (6.3-8.2); Uric Acid 4.7 mg/dL (2.5-7.5)
[2025-03-06 18:16] VITALS: BP 132/89; PULSE 102
[2025-03-06 18:29] VITALS: BP 144/92; PULSE 107
[2025-03-06 18:31] VITALS: BP 145/91; PULSE 102
[2025-03-06 18:44] VITALS: BP 132/89; PULSE 111
--- NOTE | 2025-03-06 18:47 | PC.NURSE ---
03/06 1823--notified ernesto gould CNM pt labs, medications, status. OK to D/C
== END 2025-03-06 18:35 | disposition home or self-care (01) ==
LOC: ANHOBOP 17:35 → ANHOBPP 17:35
PROVIDERS: Visit Provider Advanced Practice Midwife
DX: O13.9 Gestational [pregnancy-induced] hypertension without significant proteinuria, unspecified trimester (principal); Z3A.00 Weeks of gestation of pregnancy not specified
CPT/HCPCS: 36415; 59025; 80053; 81001; 82570; 84156; 84550; 85025; 87086; 99199

== ENCOUNTER 2025-04-03 00:05 | Inpatient (IN) | payer OTHER, SELFPAY ==
[2025-04-03] VITALS (222 sets, daily range): BP systolic 110–170; BP diastolic 56–105; PULSE 32–140; RESP 18; TEMP 36.2–36.9; O2SAT 79–100; BMI 40.7
[2025-04-03 01:04] LABS: Hematocrit 31.3 % (37.0-47.0); Hemoglobin 9.5 g/dL (12.0-15.0); Immature Granulocyte Percent A 1.0 % (0-0.5); Lymphocytes Absolute Auto 2.13 K/mm3 (0.9-3.2); Mean Corpuscular HGB Conc 30.4 g/dl (32-36); Mean Corpuscular Hemoglobin 23.4 pg (26-34); Mean Corpuscular Volume 77.1 fl (80-100); Nucleated Red Blood Cells Absolute Auto 0.000 K/mm3 (0.0-0.012); Nucleated Red Blood Cells Perc 0.0 % (0.0-0.2); Platelet Count Result 279 k/mm3 (150-375); Red Blood Count 4.06 M/mm3 (4.2-5.4); White Blood Count 9.9 K/mm3 (4.5-10.0)
--- NOTE | 2025-04-03 01:07 | LDADM ---
This patient, Elham Schumacher, was admitted to Labor/Delivery/Recovery 106 on 04/03/25 at 00:05. Plans for labor, pain management and were discussed with patient. Patient/family oriented to hospital policies and general routines including ID bracelet, bed and alarms, visiting hours, pain management, procedures, bathroom and other care routines, personal items, smoking policy, room service/diet and guest tray routines, infant security routines, and visiting hours. Patient/Family are encouraged to report perceived risks to care and to ask questions if they do not understand what they are told or what they should do. See OBIX for further documentation.
[2025-04-03] MEDS: AMPICILLIN SODIUM 2 GM in SODIUM CHLORIDE 0.9% IV 100 ML 200 ML IVPB (01:11)
[2025-04-03] MEDS: LACTATED RINGERS 1,000 ML 125 ML IV CONT ×2 (01:11→12:41)
[2025-04-03 02:06] LABS: Syphilis IgG/IgM Antibody Non-Reactive (Nonreactive)
[2025-04-03] MEDS: AMPICILLIN SODIUM 1 GM in SODIUM CHLORIDE 0.9% IV 50 ML 100 ML IVPB ×3 (05:29→13:35)
[2025-04-03] MEDS: OXYTOCIN 30 UNITS/NS 500 ML 30 UNITS/500 ML BAG IV CONT (06:20)
[2025-04-03] MEDS: LABETALOL HCL 100 MG TABLET 300 MG PO ×2 (08:21→14:45)
--- NOTE | 2025-04-03 11:58 | PM.OBPNLAB ---
Pain Control Date/time seen: 04/03/25 11:58 Comments: fhr category 1 contractions mild /-3 forbag ruptured IUPC placed, clear fluid
--- NOTE | 2025-04-03 13:23 | WPDANESEPP ---
Anes - Eval Pre Procedure Procedure: Labor epidural Date/Time: 04/03/25 13:23 Surgeon: Nixon Preop Diagnosis: Abdominal pain with contractions Pre Op Diagnosis: IOL Patient Data Age: 30 Gender: F Height: 1.57 m Weight: 101 kg Last Vital Signs Temp 97.2 F L 04/03/25 11:43 Pulse 102 H 04/03/25 13:00 BP 133/90 04/03/25 13:00 Pulse Ox 100 04/03/25 13:21 Allergies Allergy/AdvReac Type Severity Reaction Status Date / Time No Known Allergies Allergy Verified 04/03/25 01:10 Home Medications ?Medication ?Instructions ?Recorded ?Confirmed ?Type labetalol 300 mg tablet 300 mg PO Q12H #30 tabs 03/06/25 Rx labetalol 300 mg tablet 300 mg PO TID 03/21/25 03/21/25 History vitamins-iron fumarate 65 1 tablet PO DAILY 03/21/25 03/21/25 History mg iron-folic acid 1 mg tablet (Mynatal Plus) Laboratory Tests 04/03/25 00:19 WBC 9.9 K/mm3 (4.5-10.0) RBC 4.06 L M/mm3 (4.2-5.4) Hgb 9.5 L g/dL (12.0-15.0) Hct 31.3 L % (37.0-47.0) MCV 77.1 L fl (80-100) MCH 23.4 L pg (26-34) MCHC 30.4 L g/dl (32-36) RDW 16.0 H % (11.5-14.5) Plt Count 279 k/mm3 (150-375) MPV 10.7 H fl (7.4-10.4) Immature Gran % (Auto) 1.0 H % (0-0.5) Neut % (Auto) 67.2 % (45.5-73.1) Lymph % (Auto) 21.5 % (18.3-44.2) Bandera % (Auto) 8.8 H % (2.6-8.5) Eos % (Auto) 1.1 % (0-4.4) Baso % (Auto) 0.4 % (0.2-1.2) Lymph # (Auto) 2.13 K/mm3 (0.9-3.2) Bandera # (Auto) 0.9 H K/mm3 (0.1-0.6) Eos # (Auto) 0.1 K/mm3 (0-0.3) Baso # (Auto) 0.0 K/mm3 (0.0-0.1) Abs Immat Gran (auto) 0.10 H K/mm3 (0.00-0.031) Absolute Neuts (auto) 6.7 K/mm3 (1.3-6.7) Absolute Nucleated RBC 0.000 K/mm3 (0.0-0.012) Nucleated RBC % 0.0 % (0.0-0.2) Syphilis IgG/IgM Ab Non-reactive (Nonreactive) Blood Type O Positive Antibody Screen Negative : gestational age HCG: positive Patient hx anesthesia problems: none Family hx anesthesia problems: none Results Review: All pre-operative results and documents have been reviewed as part of the pre-operative evaluation. [facility] Past Medical History Medical History Anxiety Abnormal Pap smear of cervix 10/09/13, LGSIL 04/19/16, ASCUS HPV neg Elective x1 Vaginal delivery x2 Surgical History Surgical History History of cholecystectomy 2015 History of colposcopy 06/27/14 H/O abdominal surgery 2016, removal of gallstones laser of kidney stone Family History Family History Father Diabetes mellitus Hypertension Mother Diabetes mellitus Hypertension Cerebrovascular accident Grandparent Heart disease Social History Social History Smoking status: Former smoker Smokeless tobacco user: other Smoking end date: 07/15/24 Alcohol intake: former Substance use: never Lack of Transportation: No Lack of Food: Never True Current Housing: I Have Housing Concerned About Future Housing: No Difficulty Paying Gas/Electric Bills: No Difficulty Paying for Meds: No Currently Unemployed: No Education: High School Diploma/GED Difficulty w/ Childcare or Family Care: No Spiritual care concerns: No Agree to blood products: Yes Exam Day of Procedure 04/03/25 13:23 Patient weight: morbidly obese Airway: Mallampati scale class II
--- NOTE | 2025-04-03 15:40 | P.PCNOB_ITS ---
OB - Vaginal Delivery Note Procedure Delivery date: 04/03/25 Events: Chronic Hypertension Induction method: Per Pitocin Protocol Delivery augmentation: Rupture of Membranes Delivery monitor: External FHT and Internal Uterine Route of delivery: Episiotomy description: None Laceration Description: None Specimen: No Quantitative Blood Loss (ml): 50 Anesthesia type: Epidural Disposition: Floor Complications: No immediate complications [place] Baby Date of : 04/03/25 Time of : 15:33 Gestational Age by Date: 37 Infant gender: Female presentation: vertex position: Right Occiput Anterior Placenta delivery description: Spontaneous Cord Vessel Description: 3 Vessels and Nuchal Cord (x1) score one minute: 9 score five minutes: 9
[2025-04-03] MEDS: OXYTOCIN 30 UNITS/NS 500 ML 30 UNITS/500 ML BAG 125 UNITS IV CONT (16:10)
[2025-04-03] MEDS: ACETAMINOPHEN 325 MG TABLET 650 MG PO (16:29)
[2025-04-03] MEDS: IBUPROFEN 600 MG TABLET PO (16:30)
[2025-04-03] MEDS: DOCUSATE SODIUM 100 MG CAPSULE PO (17:33)
--- NOTE | 2025-04-03 18:51 | PC.NURSE ---
Patient transferred to post room #282 via wheelchair. Support person present. Oriented to unit, room, information board, rooming in, admission packet and security measures. Patient verbalizes understanding.
[2025-04-04] VITALS (7 sets, daily range): BP systolic 117–133; BP diastolic 74–84; PULSE 78–95; RESP 16–18; TEMP 37–37.1; O2SAT 97–99
[2025-04-04] MEDS: LABETALOL HCL 100 MG TABLET 300 MG PO ×3 (00:02→16:07)
[2025-04-04 04:52] LABS: Hematocrit 27.4 % (37.0-47.0); Hemoglobin 8.2 g/dL (12.0-15.0)
[2025-04-04] MEDS: MULTIVIT/MIN/PREN/FOL AC/IRON TABLET 1 TAB PO (08:26)
[2025-04-04] MEDS: DOCUSATE SODIUM 100 MG CAPSULE PO (08:26)
--- NOTE | 2025-04-04 08:35 | P.DS_ITS ---
DS: Admitting Diagnosis Discharge Date 04/04/2025 Admitting Diagnosis Term DS: Discharge Diagnosis Discharge Diagnosis (1) Term delivered: Code(s): O80 - Encounter for full-term uncomplicated delivery Status: Acute OB - DS: Summary OB Procedures : None OB Procedures Intrapartum: Spontaneous Vag Delivery OB Procedures: : None Peripartum Data Laceration Description: None Episiotomy description: None Time Spent with Patient Time attestation: Total time spent providing and/or coordinating discharge services: DS: Data Data Completed and Pending Labs on day of discharge: Labs from last 24 hours 04/04/25 04:34 Hgb 8.2 L Hct 27.4 L Discharge Plan Discharge Discharging Clinician: Dwain Alicea Patient Disposition: Home Activity: pelvic rest Diet: regular Patient Instructions: Antibiotic Form Patient Language: Belizean Stand Alone Forms: General Discharge Information Follow-up/Referrals: Dwain Alicea MD [Physician, [employer] DEPARTMENT BATTALION CHIEF] Discharge Medications: Continued Mynatal Plus 65 mg iron- 1 mg tablet 1 tablet PO DAILY labetalol 300 mg tablet 300 mg PO TID labetalol 300 mg tablet 300 mg PO Q12H Qty: 30 0RF Date of admission: 04/03/25 00:05 Primary Care Provider: PHYSICIAN,RN [facility] Admitting Provider: Dwain Alicea Attending physician on admission: Leydi Guerra Condition: Stable
--- NOTE | 2025-04-04 08:35 | P.PNOB_ITS ---
OB - PN: Subj Subjective Date/time seen: 04/04/25 08:35 Patient comments: no complaints, pain well controlled, incisional pain, tolerating diet and flatus present OB - PN: Obj Data Labs 04/04/25 04:34 Labs: Laboratory Results - last 24 hr 04/04/25 04:34 Hgb 8.2 L Hct 27.4 L OB - PN A/P Plan day: 1 Plan: routine care Comments: No problems, routine care Time Spent With Patient Time: Total time spent is greater than 50% in coordination of care (as documented) at patient's floor/unit and/or counseling patient: Exam 2 Const: General: comfortable, no acute distress and alert Resp: Effort & Inspection: normal respiratory effort Auscultation: no crackles, no rales and no rhonchi Cardio: Rate: regular rate Heart sounds: no click, no murmurs and no rubs GI: Inspection: non-distended GI Palp: No Tenderness to palpation present (GI) Auscultation: normal bowel sounds Other: Incision - CDI Extrem: General: normal to inspection, no pedal edema and no calf tenderness
--- NOTE | 2025-04-04 10:15 | PC.NURSE ---
Consulted with patient to assess needs related to . Discussed with mother her successes, concerns and any questions she has. Per mother she was having some soreness on her left nipple with the latch but it was improving. We reviewed working with the infant, supporting breast, protecting her nipples with an optimal deep latch, good positioning, and good hand washing. Encouraged understanding the benefits of skin to skin, responding to feeding cues, frequencies of feeding 8-12 times in 24 hours (approximately 2-3 hours), duration of feedings, milk production, intake/output feeding sheet and signs of adequate intake encouraging swallowing at the breast. Reviewed positioning and alignment, supporting breast, off-centered (asymmetrical latch) and leading with the chin with big, open, wide gape. Infant latched optimally to the [left] breast in [football] position. Education given to the mother of how to visualize the suckling (with good rocking jaw motion) swallows (dropping of the lower jaw) and how to listen for drinking at the breast (the ka sound). The was [able] to maintain latch without discomfort to mother. Nipple care reviewed with optimal latch, good positioning and using clean hands when touching her breast. Resources used to facilitate learning were used from the [visual handouts/ tool/mom and baby guide]. Mother voiced understanding of the education shared, to call for assistance if the does not latch or if there is discomfort with . Reported to the Primary RN.
--- NOTE | 2025-04-04 10:27 | WPDANLDPN2 ---
Anes-Prog Note L&D Date/Time: 04/04/25 10:27 Comfortable throughout: labor and delivery Neuraxial method: epidural Epidural/Spinal procedure site: clean & non-tender Neuro status: Neuro function grossly intact. Cardiovascular status: normal Respiratory status: normal Airway patency: baseline Mental status: baseline Post-Op hydration status: normal Vital Signs: Last Vital Signs Temp 37.0 C 04/04/25 08:30 Pulse 95 04/04/25 08:30 Resp 18 04/04/25 08:30 BP 126/79 04/04/25 08:30 Pulse Ox 98 04/04/25 08:30 O2 Del Method Room Air 04/04/25 00:45 Pain score (VAS): 2 I/O: Intake & Output 04/03/25 04/04/25 04/04/25 23:59 07:59 15:59 Intake Total 1 Output Total 185 500 Balance -185 -499 Post-procedural complaints: none Patient feedback: Patient satisfied with anesthetic care.
[2025-04-05 10:43] VITALS: BP 143/91; PULSE 86; RESP 18; TEMP 36.9; O2SAT 100
== END 2025-04-04 17:15 | disposition home or self-care (01) | DRG 560 ==
LOC: ANHLDR 00:14 → ANHOB2 04-04 08:37 → ANHLDR 04-05 08:50 → ANHOB2 04-05 08:50
PROVIDERS: Advanced Practice Midwife; Admitting Provider Obstetrics & Gynecology; Visit Provider Obstetrics & Gynecology
DX: O10.92 Unspecified pre-existing hypertension complicating childbirth (principal); Z3A.37 37 weeks gestation of pregnancy; Z37.0 Single live birth; O69.81X0 Labor and delivery complicated by cord around neck, without compression, not applicable or unspecified
CPT/HCPCS: 36415; 85014; 85018; 85025; 86593; 86850; 86900; 86901; A9270; J0290; J2590; J2795; J7120